=== PATIENT | female | born 1940 ===

== ENCOUNTER 2024-06-10 03:35 | Inpatient (IN) | payer MEDICARE ==
[2024-06-10] VITALS (27 sets, daily range): BP systolic 73–158; BP diastolic 45–139
[~2024-06-10] VITALS: Ht 165.1 cm; Wt 100.0 kg
[2024-06-10] MEDS ORDERED: Ipratropium/Albuterol SulF 2.5-0.5MG/3 ML Amp INH SCH (12:25)
[2024-06-10] MEDS ORDERED: FLU VACC TS2024-25(6MOS UP)/PF 45 MCG/0.5 ML SYRINGE IM SCH (12:25)
[2024-06-10] MEDS ORDERED: Albuterol 2.5 MG/3 ML VIAL INH PRN (12:25)
[2024-06-10] MEDS ORDERED: ELIQUIS2.5 MG PO (13:35)
[2024-06-10] MEDS ORDERED: DILTIAZEM 24HR240 M4 PO (13:35)
[2024-06-10] MEDS ORDERED: BISA10S (13:36)
[2024-06-10] MEDS ORDERED: ESCI10 PO (13:36)
[2024-06-10] MEDS ORDERED: IPRAT-ALBUT 0.5-3 ML INH (13:37)
[2024-06-10] MEDS ORDERED: HYDHCL25 PO (13:37)
[2024-06-10] MEDS ORDERED: LEVSOD100 PO (13:38)
[2024-06-10] MEDS ORDERED: MIRALAX17 GM PO (13:39)
[2024-06-10] MEDS ORDERED: DULCOLAX400 MG/5 M PO (13:39)
[2024-06-10] MEDS ORDERED: METO100 PO (13:39)
[2024-06-10] MEDS ORDERED: Florastor250 MG PO (13:40)
[2024-06-10] MEDS ORDERED: ANTIBIOTIC OINT28 GM TOP (13:40)
[2024-06-10] MEDS ORDERED: Ventolin5 MG/1 ML INH (13:42)
[2024-06-10] MEDS ORDERED: ZINC OXIDE57 GM TOP (13:42)
[2024-06-10] MEDS ORDERED: Polyethylene Glycol 3350 17 gm PO PRN (13:50)
[2024-06-10 14:36] LABS: Base Excess Venous 2.4 mmol/L; Bicarbonate Venous 25.2 mmol/L (24.0-30.0); PCO2 Venous 60.1 mmHg (38-42); pH Blood Venous 7.29 (7.34-7.37)
--- NOTE | 2024-06-10 14:58 | NUR ---
ADMISSION 1200 PT TRANSFERRED TO ICU 07 VIA REACH/AIR. BIPAP INTACT 14/6 25%, RESPONDS TO VERBAL/TACTILE STIMULI BUT LETHARGIC AND UNABLE TO STAY AWAKE. ALERT TO SELF ONLY, FOLLOW COMMANDS WITH EXTREMET WEAKNESS. AFIB 60S, SOFT BP. CARDIZEM STOPPED ON ARRIVAL. OXYGEN SATURATION DECREASED TO 77% WHEN TRANSITIONED TO FACILITY EQUIPMENT. PT CURRENTLY ON BIPAP 35% 14/6 RATE 17, O2 SAT 99%. VBG PERFORMED. CXR PERFORMED. NPO. PUREWICK/BRIEF ON FOR INCONTINENCE. PIVX2. WOUNDS NOTED TO BUTTOCK - X2 - STAGE 1 PRESSURE WOUNDS, SCATTERED LESIONS/BRUISES TO BUE, DISCOLORATION, REDNESS, DUSKINESS TO BLE, HEMATOMA TO LCW/AXILLA AREA. PHOTOS IN CHART. DR. FERGUSON AND CARE TEAM NOTIFIED. SPOKE WITH DAUGHTER, YOANDY NUNEZ - [phone], UPDATED HER TO PT STATUS. OTHER FAMILY CONTACTS: SON - SY MAYRA - [phone] DAUGHTER - URI MAYRA - [phone]
--- NOTE | 2024-06-10 15:13 | NUR ---
PHYSICIAN NOTIFICATION NOTIFIED DR. FERGUSON OF VBG RESULTS - PT TO REMAIN ON BIPAP. NO CHANGE TO MENTATION. HR AFIB RATE CONTROLLED, BP REMAINS SOFT WITH MAP >65. HOLD ON PLACING NGT AT THIS TIME. PO MEDICATIONS TO BED HELD BY PROVIDER AND SQ LOVENOX INITATED THIS EVENING. PLANS TO DIURESE WHEN BP CAN TOLERATE.
[2024-06-10] MEDS ORDERED: Zinc Oxide Ointment 30 GM TOP SCH (15:35)
--- NOTE | 2024-06-10 16:21 | NUR ---
PHYSICIAN NOTIFICATION DR. FERGUSON NOTIFIED OF AFIB 130S-[address]ED[address] ASSOCIATED AMIODARONE ORDERS.
[2024-06-10] MEDS ORDERED: Triple Antibiotic Ointment 30 gm TOP SCH (17:00)
[2024-06-10] MEDS ORDERED: Furosemide 10 MG / ML 2ML Vial IV SCH (17:00)
[2024-06-10] MEDS ORDERED: CefTRIAXone Sodium 1,000 MG in NS 100 ML IV SCH (18:00)
[2024-06-10] MEDS ORDERED: Enoxaparin 100 MG/ML 1ML SYR SC SCH (21:00)
[2024-06-10] MEDS ORDERED: HyDROXyzine HCl 25 MG Tab PO SCH (21:00)
[2024-06-10] MEDS ORDERED: Lactobacil 2-S.Thermo-Bifido 1 1 Cap PO SCH (21:00)
[2024-06-10] MEDS ORDERED: Apixaban 5 MG Tab PO SCH (21:00)
--- NOTE | 2024-06-10 23:24 | NUR ---
THE PTS SON CALLED AND I UPDATED HIM ON CURRENT STATUS. HE SAYS HE WILL CALL IN THE AM FOR UPDATE.
[2024-06-11] VITALS (67 sets, daily range): BP systolic 74–136; BP diastolic 46–109
[2024-06-11 04:11] LABS: BASOPHILS ABSOLUTE AUTO 0.03 K/mm3 (0.00-0.23); BASOPHILS PERCENT AUTO 1 % (0-2); EOSINOPHILS ABSOLUTE AUTO 0.02 K/mm3 (0.00-0.68); EOSINOPHILS PERCENT AUTO 0 % (0-6); Hematocrit 35.5 % (33.0-51.0); Hemoglobin 11.1 g/dL (11.5-16.0); IMMATURE GRAN PERCENT AUTO 0 % (0-1); LYMPHOCYTES PERCENT AUTO 13 % (21-46); MONOCYTES ABSOLUTE AUTO 0.59 K/mm3 (0.16-1.47); MONOCYTES PERCENT AUTO 13 % (4-13); Mean Corpuscular HGB 29.1 pg (26.0-34.0); Mean Corpuscular HGB Conc 31.3 g/dL (31.5-36.5); Mean Corpuscular Volume 93 fL (80-100); Mean Platelet Volume 11.5 fL (9.1-12.4); NEUTROPHILS ABSOLUTE AUTO 3.43 K/mm3 (1.96-9.15); NEUTROPHILS PERCENT AUTO 74 % (41-73); Platelet Count 172 K/mm3 (150-400); RDW Coefficient Variation 15.6 % (11.7-14.2); RDW Standard Deviation 52.9 fL (35.1-46.3); Red Blood Cell Count 3.82 M/mm3 (3.80-5.20); White Blood Cell Count 4.67 K/mm3 (4.00-11.30)
[2024-06-11 04:40] LABS: Albumin, Blood 2.7 g/dL (3.4-5.0); Bilirubin, Total 0.6 mg/dL (0.1-1.0); Bun/Creatinine Ratio 35.2 (12.0-20.0); Calcium, Blood 9.5 mg/dL (8.5-10.1); Creatinine, Blood 0.71 mg/dL (0.40-1.00); Globulin, Blood 2.8 g/dL (2.2-4.0); Potassium, Blood 3.4 mmol/L (3.5-5.5); Total Protein, Blood 5.5 g/dL (6.4-8.2)
--- NOTE | 2024-06-11 05:27 | NUR ---
SHIFT SUMMARY: PT IS A&O TO SELF AND PLACE BUT FREQUENTLY FORGETS. SHE SEEMS TO BE STARTLED EACH TIME SHE WAKES UP AND HAS TO BE REORIENTED. SHE IS TOLERATING THE BIPAP AND SPO2 REMAINS 97%-100%. SHE IS ON AMIO GTT AND HAS REMAINED IN AFIB 90-140 THROUGHOUT NIGHT. BLOOD PRESSURE REMAINS STABLE, BUT SOFT. HER SKIN HAS BRUISING AND SMALL SCABS THROUGHOUT. LEGS AND FEET ARE RED AND EDMATOUS. LUNG SOUNDS ARE DIMINISHED. PT DENIED ANY PAIN, BUT CONTINUES TO CRY OUT PERIODICALLY.
[2024-06-11] MEDS ORDERED: FentaNYL Citrate 50 MCG/ML 2 ML Injection IV ONE (08:10)
[2024-06-11] MEDS ORDERED: Potassium Chloride 20 MEQ in NS 90 ML IV SCH (08:30)
[2024-06-11] MEDS ORDERED: Diltiazem HCl 5 MG / ML 5ML Vial IV ONE (08:40)
[2024-06-11] MEDS ORDERED: Enoxaparin 40 MG/0.4 ML SYR SC SCH (09:00)
[2024-06-11] MEDS ORDERED: Levothyroxine Sodium 0.1 MG Tab PO SCH (09:00)
[2024-06-11] MEDS ORDERED: Metoprolol Tartrate 50 MG Tab PO SCH (09:00)
[2024-06-11] MEDS ORDERED: Citalopram Hydrobromide 20 MG Tab PO SCH (09:00)
[2024-06-11] MEDS ORDERED: dilTIAZem HCL 240 MG CAP.CD PO SCH (09:00)
[2024-06-11] MEDS ORDERED: OxyCODONE HCL 5 MG TAB PO PRN (10:05)
--- NOTE | 2024-06-11 10:07 | NUR ---
STATUS UPDATE AND BACK ON BIPAP: NOTIFIED DR. SINGER THAT THE PATIENT CONTINUES TO HAVE A HR IN THE 130S AFTER THE CARDIZEM DOSE. AT TIMES HR WILL DECREASE TO THE 100S, BUT SHORTLY AFTER INCREASES TO THE 130S. BLOOD PRESSURE CONTINUES TO BE STABLE WITH MAPS GREATER THAN 65 AND SBPS IN THE 110S-120S. EKG COMPLETED AND CONFIRMED AFIB WITH RVR. PATIENT ABLE TO SWALLOW MORNING MEDICATION ONE PILL AT A TIME WITH WATER. PATIENT DECLINED USE OF APPLESAUCE. PATIENT REQUESTED TO BE PLACED BACK ON BIPAP. PATIENT TOLERATED 3 L O2 VIA NC FOR ABOUT 1.5 HOURS. SPO2 97-99%. RR IN THE TEENS. LUNGS CONTINUE TO BE COARSE AND WHEEZY THROUGHOUT.
[2024-06-11] MEDS ORDERED: Oseltamivir Phosphate 75 MG Cap PO SCH (11:00)
[2024-06-11] MEDS ORDERED: MethylPREDNISolone Sod Succ 40 MG VIAL IV SCH (11:06)
--- NOTE | 2024-06-11 18:53 | NUR ---
SHIFT SUMMARY: NEURO: THE SHIFT PROGRESSED, PATIENT BECAME MORE ALERT AND INTERACTIVE WITH STAFF, SOME CONFUSION STILL PRESENT. FOR EXAMPLE, PATIENT ABLE TO USE HER CALL LIGHT TO ASK STAFF WHERE SHE WAS. PATIENT ANXIOUS AT TIMES, BUT OVERALL CALM AND COOPERATIVE. PATIENT VERY PAINFUL WITH TOUCH AND REPOSITIONING. PRN OXYCODONE MODERATELY SUCCESSFUL IN DECREASING. PATIENT HAS LIMITED MOVEMENT IN HER LEGS. PATIENT'S SON REPORTS THAT PRIOR TO HER LAST HOSPITALIZATION, SHE WAS AMBULATING WITH A WALKER. PATIENT REPORTED FEELING MUCH BETTER BY THE END OF SHIFT. CARDIAC: PATIENT SWITCHED FROM AMIO TO CARDIZEM TODAY. BY THE END OF SHIFT, CARDIZEM AT 15 MG/HR WITH A HR 90S-LOW 100S. FOR A FEW HOURS IN THE AFTERNOON, HR WAS IN THE 80S-90S WITH CARDIZEM ON 10 MG/HR. BLOOD PRESSURES STABLE WITH MAPS >65. RESPIRATORY: BIPAP SETTINGS DECREASED DURING THE SHIFT. PATIENT ENDED THE SHIFT WITH SETTINGS OF 10/5/30% WITH SPO2 >94%. RR IN THE 10S-20S. PATIENT ABLE TO TOLERATE BREAKS ON 3L VIA NC. PATIENT HAS A MOIST NON-PRODUCTIVE COUGH. GI/: PATIENT TOLERATING SIPS OF WATER WITH MEDICATIONS DURING BREAKS FROM BIPAP. NO SWALLOWING CONCERNS IDENTIFIED AT THIS TIME. PATIENT VOIDED 900ML DURING THE SHIFT. NO BOWEL MOVEMENT. PUREWICK IN PLACE. PSYCHSOCIAL: PATIENT'S SON SY UPDATED ON THE PATIENT STATUS. HE IS CONCERNED THAT SHE HAS LIMITED MOTIVATION FOR REHAB AND GETTING HER STRENGTH BACK. HE IS SUPPORTIVE OF THE CHOICE THAT THE PATIENT MAKES. HE LIVES IN [place]. HE IS GOING TO TRY AND CALL THE PATIENT TOMORROW AT 11:00 TOMORROW MORNING.
[2024-06-11] MEDS ORDERED: Apixaban 5 MG Tab PO SCH (21:00)
[2024-06-11] MEDS ORDERED: LORazepam 2 MG/ML 1ML Injection IV PRN (22:40)
[2024-06-12] VITALS (70 sets, daily range): BP systolic 73–156; BP diastolic 39–134
[2024-06-12 04:08] LABS: BASOPHILS ABSOLUTE AUTO 0.01 K/mm3 (0.00-0.23); BASOPHILS PERCENT AUTO 0 % (0-2); EOSINOPHILS PERCENT AUTO 0 % (0-6); Hematocrit 38.3 % (33.0-51.0); Hemoglobin 11.7 g/dL (11.5-16.0); IMMATURE GRAN ABSOLUTE AUTO 0.01 K/mm3 (0.00-0.10); IMMATURE GRAN PERCENT AUTO 0 % (0-1); LYMPHOCYTES PERCENT AUTO 15 % (21-46); MONOCYTES ABSOLUTE AUTO 0.14 K/mm3 (0.16-1.47); MONOCYTES PERCENT AUTO 5 % (4-13); Mean Corpuscular HGB 28.4 pg (26.0-34.0); Mean Corpuscular HGB Conc 30.5 g/dL (31.5-36.5); Mean Corpuscular Volume 93 fL (80-100); Mean Platelet Volume 11.9 fL (9.1-12.4); NEUTROPHILS ABSOLUTE AUTO 2.17 K/mm3 (1.96-9.15); NEUTROPHILS PERCENT AUTO 79 % (41-73); Platelet Count 196 K/mm3 (150-400); RDW Coefficient Variation 15.7 % (11.7-14.2); RDW Standard Deviation 53.5 fL (35.1-46.3); Red Blood Cell Count 4.12 M/mm3 (3.80-5.20); White Blood Cell Count 2.73 K/mm3 (4.00-11.30)
[2024-06-12 04:28] LABS: Albumin, Blood 2.8 g/dL (3.4-5.0); Albumin/Globulin Ratio 0.8 (0.8-1.8); Bilirubin, Total 0.5 mg/dL (0.1-1.0); Bun/Creatinine Ratio 34.6 (12.0-20.0); Calcium, Blood 9.7 mg/dL (8.5-10.1); Creatinine, Blood 0.78 mg/dL (0.40-1.00); Globulin, Blood 3.3 g/dL (2.2-4.0); Magnesium, Blood 1.9 mg/dL (1.6-2.4); Potassium, Blood 4.3 mmol/L (3.5-5.5); Total Protein, Blood 6.1 g/dL (6.4-8.2)
--- NOTE | 2024-06-12 05:07 | NUR ---
SHIFT SUMMARY: PT HAS BEEN MORE ALERT AND TALKATIVE TODAY. SHE IS STILL FORGETFUL AND HAS TO BE RE-ORIENTED. HER MOOD HAS ALSO FLUCTUATED THROUGHOUT SHIFT. PT HAS BEEN ABLE TO TOLERATE BREAKS FROM THE BIPAP WITH JUST NASAL CANNULA. SHE HAS BEEN ON CARDIZEM GTT. PTS RATE HAS DECREASED BETWEEN 80-110 AND SHE HAS BEEN ALTERNATING BETWEEN AFIB AND SINUS RHYTHM TOWARDS END OF SHIFT. EDEMA IN FEET HAS IMPROVED SOME. LUNG SOUNDS REMAIN DIMINSIHED AND COARSE. BLOOD PRESSURES REMAIN STABLE.
[2024-06-12] MEDS ORDERED: Mag Sulfate 1 GM/D5% 100ML 100 ML IV STA (07:46)
[2024-06-12] MEDS ORDERED: Diltiazem HCl 180 MG Cap.CD PO SCH (09:00)
[2024-06-12] MEDS ORDERED: Empagliflozin 10 MG TAB PO SCH (09:00)
--- NOTE | 2024-06-12 09:35 | NUR ---
START OF SHIFT THIS NURSE ASSUMED CARE AT APPROXIMATELY 0700. PT RESTING IN BED. PT AOX1 TO PERSON/SELF. PT UNABLE TO TELL ME THE DATE OR THE YEAR OR THE PLACE. PT HAS INTERMITTENT CONFUSION BUT IS CONVERSATIONAL. CARDIZEM GTT INFUSING AT 5MG/HR. PT HR RANGING FROM 80'S-130'S. WILL CONTINUE WITH THE PLAN OF CARE.
--- NOTE | 2024-06-12 17:32 | NUR ---
SHIFT SUMMARY PT WAS ABLE TO TAKE TWO BREAKS OFF OF THE BIPAP. PT SELF REPORTS DYSPNEA AND INCREASED WORK OF BREATHING, BIPAP PLACED. PT COMPLAINS OF GENERAL ACHES AND PAINS BUT DECLINES PAIN MEDICATIONS. CARDIZEM GTT REMAINS OFF AND WAS TURNED OFF AT APPROXIMATELY 1030. WILL CONTINUE WITH THE PLAN OF CARE.
[2024-06-12] MEDS ORDERED: Oseltamvir Phosphate 30 MG Cap PO SCH (21:00)
[2024-06-13] VITALS (72 sets, daily range): BP systolic 75–149; BP diastolic 49–134
[2024-06-13] MEDS ORDERED: dexmedeTOMIDine 100 ML IV SCH (03:15)
[2024-06-13 03:50] LABS: Hematocrit 40.7 % (33.0-51.0); Hemoglobin 12.5 g/dL (11.5-16.0); Mean Corpuscular HGB 28.6 pg (26.0-34.0); Mean Corpuscular HGB Conc 30.7 g/dL (31.5-36.5); Mean Corpuscular Volume 93 fL (80-100); Mean Platelet Volume 12.1 fL (9.1-12.4); Platelet Count 215 K/mm3 (150-400); RDW Coefficient Variation 15.7 % (11.7-14.2); RDW Standard Deviation 53.5 fL (35.1-46.3); Red Blood Cell Count 4.37 M/mm3 (3.80-5.20); White Blood Cell Count 7.33 K/mm3 (4.00-11.30)
[2024-06-13 04:18] LABS: Bun/Creatinine Ratio 35.6 (12.0-20.0); Calcium, Blood 10.5 mg/dL (8.5-10.1); Creatinine, Blood 0.81 mg/dL (0.40-1.00); Potassium, Blood 4.2 mmol/L (3.5-5.5)
--- NOTE | 2024-06-13 05:44 | NUR ---
SHIFT SUMMARY: PT MENTATION WAS MORE CLEAR EARLY IN THE SHIFT. SHE WAS COOPERATIVE AND FORGETFUL BUT EASY TO REDIRECT AND ANSWERING MANY QUESTIONS APPROPRIATELY. SHE TOLERATED NASAL CANNULA FOR LONGER. LATER IN SHIFT SHE REQUIRED THE BIPAP AGAIN BUT WAS LESS TOLERANT. PT INCREASED IN AGITATION AND COMBATIVENESS AND WAS NOT TOLERATING BIPAP. SHE SHOWED SIGNS OF DELIRIUM. PRECEDEX WAS REQUIRED TO CONTINUE CARE. PTS BEEN MOSTLY IN AFIB WITH PERIODS OF A SINUS RHYTHM AND POSSIBLE AV BLOCK. BLOOD PRESSURE HAS BEEN STABLE.
--- NOTE | 2024-06-13 18:32 | NUR ---
Summary. Pt rested in bed today, on and off bipap as tolerated. Pt remains confused at baseline but pleasant and cooperative with care today. Family updated over the phone this afternoon. Precedex off all shift. No acute events, see chart for further details.
[2024-06-14] VITALS (43 sets, daily range): BP systolic 74–151; BP diastolic 51–111
[2024-06-14 03:36] LABS: Hematocrit 38.7 % (33.0-51.0); Hemoglobin 12.1 g/dL (11.5-16.0); Mean Corpuscular HGB 28.6 pg (26.0-34.0); Mean Corpuscular HGB Conc 31.3 g/dL (31.5-36.5); Mean Corpuscular Volume 92 fL (80-100); Mean Platelet Volume 12.1 fL (9.1-12.4); NRBC ABSOLUTE 0.02 K/mm3 (0.00-0.02); NRBC Auto 0.4 /100 WBC (0.0-0.2); Platelet Count 175 K/mm3 (150-400); RDW Coefficient Variation 15.8 % (11.7-14.2); RDW Standard Deviation 52.3 fL (35.1-46.3); Red Blood Cell Count 4.23 M/mm3 (3.80-5.20); White Blood Cell Count 5.12 K/mm3 (4.00-11.30)
[2024-06-14 03:56] LABS: Bun/Creatinine Ratio 41.2 (12.0-20.0); Creatinine, Blood 0.73 mg/dL (0.40-1.00); Potassium, Blood 4.2 mmol/L (3.5-5.5)
--- NOTE | 2024-06-14 05:53 | NUR ---
SHIFT SUMMARY PATIENT A&O X1 (SELF). PATIENT CONFUSED AND HAD VISUAL HALLUCINATION OF PEOPLE IN ROOM AT BEGINING OF SHIFT. PATIETN EASILY REDIRECT. PATIENT TIRED BIPAP X3 BUT WOULD NOT LEAVE ON FACE AND NC 2L WAS APPLIED WHEN BIPAP NOT IN PLACE. 2245 STARTED PRECEDEX 0.4MCG/HR AND BIPAP WAS PUT ON SETTINGS 14/8/35%. PRECEDEX WAS TURNED OFF AT 0500 AND PATIENT REMOVED BIPAP. NC WAS PUT ON PATIENT @2L OF O2 SATS 96%. PATIENT VERY UPSET WITH TURNS AND PILLOWS APPLIED UNDER HIPS, PATIENT STATED "I CANT BREATHE" NURSE OFFERED BIPAP AND PATIENT REFUSED. SBP 90-110, HR IN THE 100'S. PATIENT HAS PUREWICK AND DEPENDS ON . WILL PRESS CALL LIGHT BUTTON WHEN REMEMBERS. CALL LIGHT WITHIN REACH.
[2024-06-14] MEDS ORDERED: Ketorolac Tromethamine 15mg Vial IV ONE (12:30)
[2024-06-14] MEDS ORDERED: Furosemide 10 MG / ML 2ML Vial IV SCH (18:00)
[2024-06-14] MEDS ORDERED: QUEtiapine Fumarate 25 MG Tab PO PRN (19:00)
--- NOTE | 2024-06-14 19:10 | NUR ---
Summary. Pt up to chair today, still confused at baseline, oriented to self. Pt frequently anxious and feeling short of breath, on bipap as needed throughout shift. Able to verbally redirect pt when agitated. No acute events this shift. See chart for further details.
[2024-06-14] MEDS ORDERED: Arginine/Glutamine/Calcium Hmb 1 Packet PO SCH (21:00)
[2024-06-14] MEDS ORDERED: QUEtiapine Fumarate 50 MG TAB PO SCH (21:00)
[2024-06-15] VITALS (34 sets, daily range): BP systolic 91–157; BP diastolic 53–143
[2024-06-15 04:40] LABS: Hematocrit 42.3 % (33.0-51.0); Hemoglobin 13.2 g/dL (11.5-16.0); Mean Corpuscular HGB 28.4 pg (26.0-34.0); Mean Corpuscular HGB Conc 31.2 g/dL (31.5-36.5); Mean Corpuscular Volume 91 fL (80-100); Mean Platelet Volume 12.3 fL (9.1-12.4); Platelet Count 192 K/mm3 (150-400); RDW Coefficient Variation 15.5 % (11.7-14.2); RDW Standard Deviation 50.9 fL (35.1-46.3); Red Blood Cell Count 4.65 M/mm3 (3.80-5.20); White Blood Cell Count 5.85 K/mm3 (4.00-11.30)
[2024-06-15 04:58] LABS: Bun/Creatinine Ratio 41.1 (12.0-20.0); Creatinine, Blood 0.78 mg/dL (0.40-1.00); Potassium, Blood 3.1 mmol/L (3.5-5.5)
--- NOTE | 2024-06-15 05:02 | NUR ---
SHIFT SUMMARY PT REMAINED CONFUSED, AGITATED, AND UNCOOPERATIVE THROUGHOUT THE NIGHT. PT CONSTANTLY PULLING O2 CANULA OUT OF NOSE AND PULLING AT LINES AND AT TIMES WHEN ATTEMTPING TO REDIRECT PT WOULD SCREAM AND EVEN GRAB AT THIS RN'S HANDS MAKIING IT DIFFICULT TO REAPPLY NC. PT WAS SATURATING WELL ON 2L WHEN NC WAS KEPT ON. PT ALSO ATTEMPTED TO SPIT OUT MEDS MULTIPLE TIMES STATING SHE DOES NOT TAKE PILLS. STILL IN AFIB RVR BUT AT TIMES WHEN PT APPEARED TO BE RESTING HR DECREASED TO 60S-80S.
[2024-06-15] MEDS ORDERED: Potassium Chloride 20 MEQ TabCR PO SCH (07:30)
[2024-06-15 07:51] LABS: Base Excess Venous 14.9 mmol/L; PCO2 Venous 54.8 mmHg (38-42); pH Blood Venous 7.46 (7.34-7.37)
[2024-06-15] MEDS ORDERED: MethylPREDNISolone Sod Succ 40 MG VIAL IV SCH (09:00)
[2024-06-15] MEDS ORDERED: Ipratropium/Albuterol SulF 2.5-0.5MG/3 ML Amp INH SCH (12:25)
[2024-06-15] MEDS ORDERED: Spironolactone 12.5 MG TAB PO SCH (14:00)
--- NOTE | 2024-06-15 18:49 | NUR ---
Pt up to chair this am, remains confused at baseline, pleasant and cooperative with care this shift. Pt less SOB this shift, on bipap briefly this afternoon for comfort. In pt room frequently throughout shift to redirect pt and provide comfort. Shifted pt with green sheet in chair frequently. No acute events this shift, see chart for further details.
[2024-06-16] VITALS (29 sets, daily range): BP systolic 88–131; BP diastolic 50–87
--- NOTE | 2024-06-16 00:14 | NUR ---
UPDATE TALKED TO PATIENT'S DAUGHTER (PATTI) @ 2029. SHE WAS JUST WANTING AN UPDATE ON HER MOTHER. DAUGHTER HAS REQUESTED THAT A DOCTOR CALL HER TOMORROW DURING THE DAY @ [phone]. DAUGHTER STATED THAT HER BROTHER WAS WANTED TO GET THEIR MOTHER OUT OF HOSPITAL. CHARGE NURSE AWARE AND WILL ALSO INFORM DAYSHIFT NURSE.
[2024-06-16 03:18] LABS: Hemoglobin 12.3 g/dL (11.5-16.0); Mean Corpuscular HGB 28.1 pg (26.0-34.0); Mean Corpuscular HGB Conc 30.8 g/dL (31.5-36.5); Mean Corpuscular Volume 92 fL (80-100); Mean Platelet Volume 11.7 fL (9.1-12.4); Platelet Count 161 K/mm3 (150-400); RDW Coefficient Variation 15.2 % (11.7-14.2); RDW Standard Deviation 51.5 fL (35.1-46.3); Red Blood Cell Count 4.37 M/mm3 (3.80-5.20)
[2024-06-16 03:20] LABS: BASOPHILS PERCENT AUTO 0 % (0-2); EOSINOPHILS PERCENT AUTO 0 % (0-6); IMMATURE GRAN ABSOLUTE AUTO 0.02 K/mm3 (0.00-0.10); IMMATURE GRAN PERCENT AUTO 0 % (0-1); LYMPHOCYTES ABSOLUTE AUTO 0.41 K/mm3 (0.84-5.20); LYMPHOCYTES PERCENT AUTO 8 % (21-46); MONOCYTES ABSOLUTE AUTO 0.28 K/mm3 (0.16-1.47); MONOCYTES PERCENT AUTO 5 % (4-13); NEUTROPHILS ABSOLUTE AUTO 4.52 K/mm3 (1.96-9.15); NEUTROPHILS PERCENT AUTO 86 % (41-73); White Blood Cell Count 5.23 K/mm3 (4.00-11.30)
[2024-06-16 03:36] LABS: Albumin, Blood 2.8 g/dL (3.4-5.0); Bilirubin, Total 0.6 mg/dL (0.1-1.0); Bun/Creatinine Ratio 51.8 (12.0-20.0); Creatinine, Blood 0.79 mg/dL (0.40-1.00); Globulin, Blood 2.8 g/dL (2.2-4.0); Potassium, Blood 2.8 mmol/L (3.5-5.5); Total Protein, Blood 5.6 g/dL (6.4-8.2)
[2024-06-16] MEDS ORDERED: Potassium Chloride 20 MEQ in NS 90 ML IV SCH (04:30)
[2024-06-16] MEDS ORDERED: Ipratropium/Albuterol SulF 2.5-0.5MG/3 ML Amp INH PRN (04:35)
[2024-06-16] MEDS ORDERED: NS 250 ML IV PRN (04:45)
--- NOTE | 2024-06-16 06:24 | NUR ---
SHIFT SUMMARY PATIENT SLEPT MOST OF NIGHT. WHEN WOKE UP TO DO CARE PATIENT YELLS OUT AND HITS NURSE. PATIENT VERY CONFUSED ABOUT WHERE SHE IS AND WHAT SHE IS DOING HERE. SBP 110-120'S HR IN THE 70-80'S. ON 2L VIA NC. HAS PUREWICK IN PLACE WITH DEPENDS BRIEF. WHEN SLEEPING GETS VERY AGITATED WHEN NURSE TRYS TO CHECK BRIEF. HAS POWERGLIDE IN LEFT UPPER ARM. K+ INFUSING WITH TKO. PATIENT REMEMBERS TO USE CALL LIGHT SOMETIMES AND ITS WITHIN REACH.
--- NOTE | 2024-06-16 07:15 | NUR ---
ASSUMPTION OF CARE: ASSUMED CARE OF PATIENT. PATIENT SLEEPING QUIETLY IN BED. AWAKENS EASILY TO VERBAL STIMULI. CALM UPON AWAKENING. PATIENT DENIES PAIN AT THIS TIME. BLOOD PRESSURE STABLE WITH MAP >65 AND SBP >100. HR IN THE 60S-70S. PATIENT STABLE ON 2L VIA NC WITH SPO2 AT 97%. RR IN THE TEENS. NO RESPIRATORY DISTRESS NOTED. PER REPORT, PATIENT DID NOT REQUIRE BIPAP OVERNIGHT. PUREWICK IN PLACE. PATIENT DENIES NEEDS AT THIS TIME.
[2024-06-16] MEDS ORDERED: Potassium Chloride 10 Meq Tablet SA PO ONE (08:00)
[2024-06-16] MEDS ORDERED: Furosemide 10 MG / ML 2ML Vial IV SCH ×2 (09:00→18:00)
--- NOTE | 2024-06-16 10:39 | NUR ---
ON BIPAP: PATIENT REPORTED FEELING SHORT OF BREATH. AGREEABLE TO BIPAP. PLACED ON BIPAP WITH RT AT BEDSIDE. SETTINGS 16/8/35%. RR IN MID TEENS ON BIPAP. NO RESPIRATORY DISTRESS NOTED. SPO2 100%.
[2024-06-16] MEDS ORDERED: Potassium Chloride 20 MEQ in NS 90 ML IV ONE (11:30)
[2024-06-16 12:34] LABS: Base Excess Venous 18.4 mmol/L; Bicarbonate Venous 39.4 mmol/L (24.0-30.0); PCO2 Venous 54.3 mmHg (38-42); pH Blood Venous 7.49 (7.34-7.37)
--- NOTE | 2024-06-16 18:24 | NUR ---
SHIFT SUMMARY: NEURO: PATIENT DROWSY/LETHARGIC THIS AM. PATIENT IMPROVED THROUGHOUT THE SHIFT. BY LATE MORNING, PATIENT HOLDING HER EYES OPEN AND ANSWERING QUESTIONS ABLE. PATIENT CONTINUES TO BE CONFUSED ABOUT WHERE SHE IS AND WHY. PATIENT CALM AND COOPERATIVE. IMPROVED MOBILITY THE DAY PROGRESSED. BY AFTERNOON, PATIENT ABLE TO LIFT HER ARMS TO HELP WELL BEND HER KNEES IN THE BED. PATIENT UP TO THE CHAIR FOR ABOUT 3 HOURS IN THE AM. PATIENT CALLING OUT AT TIMES, "HELP". MEDICATED FOR PAIN PER PRNS. PATIENT RESPONDED WELL TO REASSURANCE AND REPOSITIONING. CARDIAC: PATIENT IN AFIB THROUGHOUT THE SHIFT. LOW BP NOTED AFTER PATIENT RECEIVED AM CARDIAC MEDICATIONS. THIS RESOLVED THE DAY PROGRESSED. PATIENT DENIED DIZZINESS, FATIGUE OR SHORTNESS OF BREATH. HR IN THE 80S- LOW 100S. RESPIRATORY: PATIENT REPORTED SHORTNESS OF BREATH AT TIMES AND AGREED TO THE BIPAP. PATIENT ALSO STABLE ON 2 L O2 VIA NC WITH SPO2 >92%. GI/: PATIENT HAS MINIMAL INTAKE, BUT IS TOLERATING SOME BITES OF LUNCH AND DINNER. PATIENT HAS NOT HAD A BOWEL MOVEMENT CHARTED SINCE ADMISSION. BOWEL CARE STARTED TODAY. PATIENT REPORTING SOME ABDOMINAL PAIN. PUREWICK REMOVED RELATED TO IRRITATED APPEARANCE OF EXTERNAL LABIA. ATTENDS IN PLACE. MULTIPLE INCONTINENT VOIDS. URINE IS YELLOW. NO FOUL ODOR NOTED. PSYCHSOCIAL: PATIENT ANXIOUS AT TIMES. PATIENT IS REDIRECTABLE AND RESPONDS WELL TO STAFF IN THE ROOM. ABLE TO UPDATE PATIENT'S SON SY.
[2024-06-16] MEDS ORDERED: Acetaminophen 325 MG TABLET PO PRN (18:40)
[2024-06-16] MEDS ORDERED: Docusate Sodium Liquid 100 MG UDC PT SCH (21:00)
[2024-06-16] MEDS ORDERED: Potassium Chloride 40 MEQ in NS 250 ML IV ONE (21:25)
[2024-06-17] VITALS (11 sets, daily range): BP systolic 88–124; BP diastolic 58–95
[2024-06-17 05:16] LABS: Bun/Creatinine Ratio 59.2 (12.0-20.0); Creatinine, Blood 0.84 mg/dL (0.40-1.00); Potassium, Blood 4.6 mmol/L (3.5-5.5)
--- NOTE | 2024-06-17 05:47 | NUR ---
SHIDT SUMMARY PATIENT WAS CALM AND SLEPT THROUGH NIGHT. WOKE UP AROUND 0430 CRYING OUT "HELP ME" NURSE WENT IN AND REDIRECT PATIENT. REPOSITIONED AND PAIN MEDS FROM EMAR WITH WARM BLANKET HELPED PATIENT BACK TO SLEEP. ATTENDS CHECKED Q2HRS FOR INCONTINENCE. PATIENT WHEN WAKES ASK FOR WATER FOR DRY MOUTH. A&OX1 VERY CONFUSED BUT EASILY REDIRECTED. SBP 110'S AND HR IN THE 90'S. ON 2L OF OXYGEN VIA NC. PATIENT HAS POWERGLIDE IN LEFT UPPER ARM. CALL LIGHT WITHIN REACH.
[2024-06-17] MEDS ORDERED: Potassium Chloride 20 MEQ TabCR PO SCH (08:00)
--- NOTE | 2024-06-17 08:00 | NUR ---
Nome of care: Alert, oriented to self only, very anxious this morning. Repeats "help me, help me" over & over but unable to articulate needs. OOB to chair with lift & two-person assist. In controlled Afib in the 80s. On 2L NC with adequate oxygen saturations. Coarse/diminished breath sounds. Very minimal PO intake with breakfast, spitting pills out repeatedly, non-cooperative. Purewick placed. Powerglide in CB. Will discuss plan of care with MD on rounds.
[2024-06-17] MEDS ORDERED: dilTIAZem HCL 240 MG CAP.CD PO SCH (09:00)
[2024-06-17] MEDS ORDERED: Multivitamins 1 Tab PO SCH (09:00)
[2024-06-17] MEDS ORDERED: Thiamine HCl 100 MG Tab PO SCH (09:00)
[2024-06-17] MEDS ORDERED: Morphine Sulfate 20 MG/1ML 1 ML Oral Syringe PO ONE (10:00)
[2024-06-17] MEDS ORDERED: Morphine Sulfate 20 MG/1ML 1 ML Oral Syringe PO PRN ×2 (10:00→11:15)
[2024-06-17] MEDS ORDERED: Morphine Sulfate 20 MG/1ML 1 ML Oral Syringe SL PRN (11:15)
[2024-06-17] MEDS ORDERED: Scopolamine Hydrobromide Patch TOP PRN (11:15)
[2024-06-17] MEDS ORDERED: LORazepam 1 MG Tab PO PRN (11:15)
[2024-06-17] MEDS ORDERED: Atropine Sulfate 1% Opth Soln 2ML BTL SL PRN (11:15)
[2024-06-17] MEDS ORDERED: Morphine Sulfate 10 MG/ML 1MLSYR IV PRN (11:15)
[2024-06-17] MEDS ORDERED: Promethazine HCl 25 MG Tab PO PRN (11:20)
[2024-06-17] MEDS ORDERED: LORazepam 2 MG/ML 1ML Injection IV PRN (11:45)
--- NOTE | 2024-06-17 12:04 | NUR ---
PT RETURNING HOME WITH HOSPICE. BOTH PT'S SON SY AND DAUGHTER YOANDY ARE ONBOARD WITH THIS, AND CHANGING PT'S STATUS TO COMFORT CARE. THEY V/U REGARDING THE NEED FOR HOSPICE. SY STATES THEY WERE CONTEMPLATING HOSPICE AT PT'S LAST HOSPITAL DISCHARGE. CM AWARE, WORKING ON [facility] DISCHARGE TO DAUGHTER'S HOME.
--- NOTE | 2024-06-17 18:24 | NUR ---
assumed care of pt, pt arrived sedated and comfortable, pt was slid over to new bed without incident. pt stated she was not in pain and fell back asleep. purwic attached and room set up for pt isolation. CB PG intact pt repositioned for comfort
--- NOTE | 2024-06-17 18:26 | NUR ---
1800 repositioned pt and pt moaning stating she was in pain with no specific pain. pt medicated per protocol and is now comfortably sleeping. dinner tray was held due to risk for aspiration.
[2024-06-18] MEDS ORDERED: Furosemide 40 MG Tab PO SCH (09:00)
[2024-06-18] MEDS ORDERED: dilTIAZem HCL 240 MG CAP.CD PO SCH (09:00)
--- NOTE | 2024-06-18 17:52 | NUR ---
SHIFT SUMMARY PT RESPONDED BY FLUTTERING HER EYES W/ VERBAL AND PAINFUL STIMULI THIS AM AND THEN WAS ABLE TO VERBALIZE YES AND NO TO QUESTIONS IN THE AFTERNOON. PT BEGAN MOANING AND CALLING OUT "HELP ME". PT MEDICATED PER EMAR. PT REPOSITIONED Q2. NO OTHER ACUTE CHANGES. CALL LIGHT WITHIN REACH AND BED ALARM ON FOR SAFETY.
--- NOTE | 2024-06-19 11:13 | NUR ---
DISCHARGE NOTE PT D/C HOME ON HOSPICE AT APPROX 0810. PT UNRESPONSIVE, ON 4L O2 NC, AND MEDICATED FOR AIRHUNGER AND SECRETIONS PER EMAR. DISCHARGE PACKET, PT'S BELONGINGS, AND POLST GIVEN TO TRANSPORT. TRANSPORT ESCOURTED PT OUT VIA GURNEY.
== END 2024-06-19 08:02 | disposition hospice, home (50) | DRG 189 ==
LOC: ICUE 03:35 → MEDS 15:27 → ICUE 15:27 → MEDS 06-17 15:30 → ENPENDDIS 06-18 14:18 → MEDS 06-18 21:52
PROVIDERS: Family Medicine; Internal Medicine; Registered Nurse; Student in an Organized Health Care Education/Training Program; ADMIT Student in an Organized Health Care Education/Training Program
PROC: 5A09457 Assistance with Respiratory Ventilation, 24-96 Consecutive Hours, Continuous Positive Airway Pressure (ICD-10-PCS; principal; 2024-06-10)
DX: J96.01 Acute respiratory failure with hypoxia (principal); I50.33 Acute on chronic diastolic (congestive) heart failure; J18.9 Pneumonia, unspecified organism; J44.1 Chronic obstructive pulmonary disease with (acute) exacerbation; J98.11 Atelectasis; E87.29 Other acidosis; Z66 Do not resuscitate; Z51.5 Encounter for palliative care; J44.0 Chronic obstructive pulmonary disease with (acute) lower respiratory infection; J10.1 Influenza due to other identified influenza virus with other respiratory manifestations; J96.02 Acute respiratory failure with hypercapnia; L89.321 Pressure ulcer of left buttock, stage 1; L89.311 Pressure ulcer of right buttock, stage 1; I11.0 Hypertensive heart disease with heart failure; E03.9 Hypothyroidism, unspecified; I48.91 Unspecified atrial fibrillation; G31.84 Mild cognitive impairment of uncertain or unknown etiology; F41.9 Anxiety disorder, unspecified; F32.A Depression, unspecified; M79.7 Fibromyalgia; R07.9 Chest pain, unspecified; S50.812A Abrasion of left forearm, initial encounter; S20.219A Contusion of unspecified front wall of thorax, initial encounter; Z87.01 Personal history of pneumonia (recurrent); Z87.440 Personal history of urinary (tract) infections; Z85.3 Personal history of malignant neoplasm of breast; Z90.13 Acquired absence of bilateral breasts and nipples; Z98.51 Tubal ligation status; Z98.890 Other specified postprocedural states; X58.XXXA Exposure to other specified factors, initial encounter
CPT/HCPCS: 36415; 71045; 80048; 80053; 82803; 83735; 83880; 84145; 84443; 84484; 85025; 85027; 92526; 92610; 93005; 93010; 93306; 94640; 94660; 94664; 94760; 94762; 97110; 97162; 97530; A9270; C1751; G0378; J0282; J0696; J1650; J1885; J1940; J2060; J2270; J2919; J3010; J3475; J3480; J7050; J7060